=== PATIENT | female | born 1975 | race Caucasian/White ===

== ENCOUNTER 2018-05-03 09:46 | Emergency (ER) | payer OTHER ==
[2018-05-03 09:46] VITALS: BMI 23.8
[2018-05-03 09:52] VITALS: RESP 20
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
[2018-05-03 12:18] LABS: SQUAMOUS EPITHIAL 10 /hpf (0-5); URINE BILIRUBIN NEGATIVE (NEGATIVE); URINE BLOOD NEGATIVE (NEGATIVE); URINE CLARITY Clear (Clear); URINE COLOR Yellow (YELLOW); URINE GLUCOSE (UA) NORMAL (Normal); URINE LEUKOCYTE ESTERASE TRACE Leu/uL (Negative); URINE PROTEIN 1+ mg/dL (NEGATIVE); URINE UROBILINOGEN NORMAL mg/dL (0.2-1.0)
[2018-05-03 13:11] VITALS: BP 118/80; PULSE 80; TEMP 98.2; O2SAT 99
== END 2018-05-03 13:13 | disposition home or self-care (01) ==
LOC: C.ER 09:46
DX: T76.21XA Adult sexual abuse, suspected, initial encounter (principal)